=== PATIENT | male | born 1990 | race Caucasian/White ===

== ENCOUNTER 2024-08-18 07:52 | Emergency (ER) | payer SELFPAY ==
[~2024-08-18] VITALS: Ht 175.3 cm; Wt 77.4 kg
[2024-08-18 07:58] VITALS: BP 139/83; TEMP 97.6; O2SAT 100
== END 2024-08-18 11:52 | disposition left against medical advice (07) ==
LOC: M ED 07:52
DX: Z53.21 Procedure and treatment not carried out due to patient leaving prior to being seen by health care provider (principal)

== ENCOUNTER 2024-08-24 11:24 | Emergency (ER) | payer OTHER, SELFPAY ==
[~2024-08-24] VITALS: Ht 175.3 cm; Wt 75.8 kg
[2024-08-24 14:18] LABS: BASO % 0.4 % (0.0-1.0); EOS # 0.1 10^3/uL (0.0-0.5); EOS % 1.3 % (0.0-3.0); HEMATOCRIT 44.8 % (42.0-52.0); HEMOGLOBIN 15.2 g/dl (13.5-17.5); LYMPH % 36.8 % (24.0-44.0); MEAN CORPUSCULAR HEMOGLOBIN 29.8 pg (27.0-33.0); MEAN CORPUSCULAR HGB CONC 33.9 g/dl (32.0-36.5); MEAN CORPUSCULAR VOLUME 87.8 fl (80.0-96.0); MONO # 0.4 10^3/uL (0.0-0.8); MONO % 7.6 % (2.0-8.0); NEUTROPHILS # 2.9 10^3/uL (1.5-8.5); NEUTROPHILS % 53.5 % (36.0-66.0); PLATELET COUNT, AUTOMATED 202 10^3/uL (150-450); WHITE BLOOD COUNT 5.4 10^3/uL (4.0-10.0)
[2024-08-24 14:30] LABS: CK-MB VALUE MASS < 1.0 NG/ML (<3.6)
[2024-08-24 14:31] LABS: LIPASE 35 U/L (12-53)
[2024-08-24 14:33] LABS: ALBUMIN 4.1 G/DL (3.2-5.2); ALKALINE PHOSPHATASE 49 U/L (40-129); ALT/SGPT 18 U/L (7.0-40); AST/SGOT 11 U/L (<34); BILIRUBIN,DIRECT 0.2 MG/DL (<0.4); BILIRUBIN,TOTAL 0.6 MG/DL (0.3-1.2); BLOOD UREA NITROGEN 12 MG/DL (9-23); CALCIUM LEVEL 9.3 MG/DL (8.5-10.1); CARBON DIOXIDE LEVEL 26 MMOL/L (20-31); CHLORIDE LEVEL 107 MMOL/L (98-107); CREATININE FOR GFR 0.81 MG/DL (0.70-1.30); GLOMERULAR FILTRATION RATE > 60.0 (>60); GLUCOSE, FASTING 90 MG/DL (60-100); POTASSIUM SERUM 3.8 MMOL/L (3.5-5.1); SODIUM LEVEL 142 MMOL/L (136-145)
[2024-08-24 14:34] LABS: THYROID STIMULATING HORMONE 0.996 uIU/ML (0.55-4.78)
[2024-08-24 14:47] LABS: CPK CREATINE PHOSPHOKINASE 158 U/L (46-171); MB/CK RELATIVE INDEX 0.63 (< OR =4)
[2024-08-24] MEDS ORDERED: ISOVUE-370 76% 100ML VIAL As Ordered ONE (14:51)
[2024-08-24] MEDS ORDERED: PANT40TA29 PO (15:45)
[2024-08-24 17:00] VITALS: BP 131/77; TEMP 97.9; O2SAT 99
== END 2024-08-24 17:12 | disposition home or self-care (01) ==
LOC: M ED 11:24
DX: R07.9 Chest pain, unspecified (principal); Z79.899 Other long term (current) drug therapy
CPT/HCPCS: 36415; 71045; 71275; 74174; 80048; 80076; 82550; 82553; 83690; 84443; 84484; 85025; 93005; 93041; 94760; 99285; Q9967

== ENCOUNTER 2024-09-27 09:36 | Emergency (ER) | payer OTHER ==
[~2024-09-27] VITALS: Ht 175.3 cm; Wt 77.9 kg
[~2024-09-27 09:36] MED LIST: PANT40TA29 PO
[2024-09-27 10:31] LABS: KETONE, URINE AUTO RFX NEGATIVE (NEGATIVE); LEUKOCYTE ESTERASE UR AUTO RFX NEGATIVE (NEGATIVE); NITRITE, URINE AUTO RFX NEGATIVE (NEGATIVE); RBC, URINE AUTO RFX 0 /HPF (0-3); SQUAM EPITHELIAL CELL UR AURFX 0 /HPF (0-6); WBC, URINE AUTO RFX 0 /HPF (0-3)
[2024-09-27 11:51] LABS: BASO % 0.3 % (0.0-1.0); EOS # 0.1 10^3/uL (0.0-0.5); EOS % 1.5 % (0.0-3.0); HEMATOCRIT 48.4 % (42.0-52.0); HEMOGLOBIN 16.4 g/dl (13.5-17.5); LYMPH # 2.1 10^3/uL (1.5-5.0); LYMPH % 36.7 % (24.0-44.0); MEAN CORPUSCULAR HGB CONC 33.9 g/dl (32.0-36.5); MEAN CORPUSCULAR VOLUME 88.6 fl (80.0-96.0); MONO # 0.4 10^3/uL (0.0-0.8); MONO % 6.7 % (2.0-8.0); NEUTROPHILS # 3.2 10^3/uL (1.5-8.5); NEUTROPHILS % 54.5 % (36.0-66.0); PLATELET COUNT, AUTOMATED 203 10^3/uL (150-450); RED BLOOD COUNT 5.46 10^6/uL (4.30-6.10); WHITE BLOOD COUNT 5.8 10^3/uL (4.0-10.0)
[2024-09-27 11:52] LABS: Trichomonas vaginalis (AMP) NOT DETECTED (NEGATIVE)
[2024-09-27 12:15] LABS: LIPASE 38 U/L (12-53)
[2024-09-27 12:17] LABS: GC DNA AMPLIFICATION NEGATIVE (NEGATIVE)
[2024-09-27 12:17] LABS: ALBUMIN 4.5 G/DL (3.2-5.2); ALKALINE PHOSPHATASE 52 U/L (40-129); ALT/SGPT 20 U/L (7.0-40); AST/SGOT 12 U/L (<34); BILIRUBIN,DIRECT 0.1 MG/DL (<0.4); BILIRUBIN,TOTAL 0.5 MG/DL (0.3-1.2); BLOOD UREA NITROGEN 13 MG/DL (9-23); CARBON DIOXIDE LEVEL 29 MMOL/L (20-31); CHLORIDE LEVEL 102 MMOL/L (98-107); CREATININE FOR GFR 0.86 MG/DL (0.70-1.30); GLOMERULAR FILTRATION RATE > 90.0 (>60); GLUCOSE, FASTING 89 MG/DL (60-100); POTASSIUM SERUM 4.1 MMOL/L (3.5-5.1); SODIUM LEVEL 140 MMOL/L (136-145); TOTAL PROTEIN 7.6 G/DL (5.7-8.2)
[2024-09-27] MEDS: KETOROLAC 30 MG/ML 1ML VIAL IV ONE (12:54)
[2024-09-27] MEDS: CYCLOBENZAPRINE 5MG TABLET PO ONE (14:05)
[2024-09-27] MEDS: ACETAMINOPHEN 500 MG TAB PO ONE (14:20)
[2024-09-27] MEDS: LIDOCAINE 5% (LIDODERM) PATCH TD ONE (14:20)
[2024-09-27] MEDS ORDERED: CYCL-707 PO (14:44)
[2024-09-27 14:49] VITALS: BP 129/73; TEMP 98.3; O2SAT 100
== END 2024-09-27 14:56 | disposition home or self-care (01) ==
LOC: M ED 09:36
DX: R10.9 Unspecified abdominal pain (principal); Z79.899 Other long term (current) drug therapy
CPT/HCPCS: 74176; 80048; 80076; 81001; 83690; 85025; 87661; 87810; 87850; 96374; 99283; J1885

== ENCOUNTER 2025-02-01 06:18 | Emergency (ER) | payer OTHER ==
[~2025-02-01] VITALS: Ht 175.3 cm; Wt 78.2 kg
[~2025-02-01 06:18] MED LIST changes: +CYCL-707 PO; +IBUP200C89 PO
[2025-02-01] MEDS: diphenhydrAMINE 50 MG/ML VIAL IV ONE (08:22)
[2025-02-01] MEDS: dexAMETHasone 4 MG/ML 1 ML VIAL IV ONE (08:24)
[2025-02-01] MEDS: KETOROLAC 30 MG/ML 1 ML VIAL IV ONE (08:26)
[2025-02-01] MEDS: NS (Normal Saline) 0.9% 1,000 ML IV ONE (08:26)
[2025-02-01] MEDS: CYCLOBENZAPRINE 10 MG TABLET PO ONE (10:14)
[2025-02-01] MEDS ORDERED: ACET-683 PO (11:23)
[2025-02-01] MEDS ORDERED: METH4PACK PO (11:23)
[2025-02-01] MEDS ORDERED: LIDO1ADH93 TOP (11:23)
[2025-02-01] MEDS ORDERED: CYCL5TAB4 PO (11:23)
[2025-02-01 11:54] VITALS: BP 126/69; TEMP 98.6; O2SAT 98
== END 2025-02-01 12:05 | disposition home or self-care (01) ==
LOC: M ED 06:18
DX: M50.20 Other cervical disc displacement, unspecified cervical region (principal); M51.24 Other intervertebral disc displacement, thoracic region; M51.26 Other intervertebral disc displacement, lumbar region; R51.9 Headache, unspecified; Z79.1 Long term (current) use of non-steroidal anti-inflammatories (NSAID); Z79.899 Other long term (current) drug therapy
CPT/HCPCS: 96361; 96374; 96375; 99284; J1100; J1200; J1885; J2765